=== PATIENT | male | born 1930 | race Hispanic/Latino ===

== ENCOUNTER 2016-12-28 11:52 | Inpatient (IN) | payer MEDICARE, MEDICAID ==
[2016-12-28] MEDS ORDERED: Sodium Chloride 0.9% 500 ML IV ONE (13:02)
--- NOTE | 2016-12-28 13:05 | ED PDOC ---
HPI: Male Pain Time Seen by Provider: 12/28/16 12:21 Chief Complaint (Nursing): Dizziness/Lightheaded History Per: Patient History/Exam Limitations: no limitations Onset/Duration Of Symptoms: Days (1), Gradual Current Symptoms Are (Timing): Still Present Severity: Mild Quality Of Discomfort: Dull Associated Symptoms: Constipation (for3 ddqys no bm). denies: Fever, Chills, Nausea, Vomiting, Diarrhea, Loss Of Appetite, Back Pain, Chest Pain, Urinary Symptoms Alleviating Factors: None Additional History Per: Patient Additional Complaint(s): pt satets diffuse weakness no bm in 3 days reduced po intake, no genital pain no head trauma or abernathy mild lh unpon waking today no prev sx. Past Medical History Reviewed: Historical Data, Nursing Documentation, Vital Signs Vital Signs: Last Vital Signs Temp 97 F L 12/28/16 11:56 Pulse 77 12/28/16 11:56 Resp 18 12/28/16 11:56 BP 120/51 L 12/28/16 11:56 Pulse Ox 99 12/28/16 11:56 - Medical History PMH: No Chronic Diseases - Family History Family History: States: Unknown Family Hx - Living Arrangements Living Arrangements: With Family - Social History Current smoker - smoking cessation education provided: No - Immunization History Hx Tetanus Toxoid Vaccination: No Hx Influenza Vaccination: No Hx Pneumococcal Vaccination: No - Home Medications Home Medications: Ambulatory Orders Medication Instructions Recorded Naproxen [Naprosyn] 500 mg PO Q12H #20 tab 02/04/16 Tamsulosin [Flomax] 0.4 mg PO DAILY #20 cap 02/04/16 - Allergies Allergies/Adverse Reactions: Allergies Allergy/AdvReac Type Severity Reaction Status Date / Time No Known Allergies Allergy Verified 02/04/16 12:45 Review of Systems ROS Statement: Except As Marked, All Systems Reviewed And Found Negative Constitutional: Negative for: Fever, Chills Cardiovascular: Negative for: Chest Pain, Palpitations Respiratory: Negative for: Cough, Shortness of Breath Gastrointestinal: Positive for: Constipation. Negative for: Nausea, Vomiting, Abdominal Pain, Melena, Hematochezia, Hematemesis Genitourinary Male: Negative for: Dysuria, Frequency, Hematuria, Scrotal Pain Skin: Negative for: Rash Neurological: Negative for: Weakness, Numbness, Seizures, Altered Mental Status , Headache Physical Exam - Reviewed Nursing Documentation Reviewed: Yes Vital Signs Reviewed: Yes - Physical Exam Appears: Positive for: Uncomfortable Head Exam: Positive for: ATRAUMATIC, NORMAL INSPECTION, NORMOCEPHALIC Skin: Positive for: Normal Color, Warm, Dry Eye Exam: Positive for: Normal appearance, EOMI, PERRL Neck: Positive for: Normal, Painless ROM, Supple Cardiovascular/Chest: Positive for: Regular Rate, Rhythm, Chest Non Tender. Negative for: Edema, Gallop Respiratory: Positive for: Normal Breath Sounds. Negative for: Decreased Breath Sounds, Rales, Rhonchi, Stridor, Wheezing, Respiratory Distress, Plerual Rub Pulses-Radial (L): 2+ Pulses-Radial (R): 2+ Gastrointestinal/Abdominal: Positive for: Normal Exam, Bowel Sounds, Soft. Negative for: Tenderness Male Genital Exam: Positive for: normal genitalia, no hernia. Negative for: epididymal tenderness, scrotum tenderness (R), scrotum tenderness (L), testicular tenderness (R), testicular tenderness (L) Back: Positive for: Normal Inspection. Negative for: L CVA Tenderness, R CVA Tenderness, Vertebral Tenderness Extremity: Positive for: Normal ROM. Negative for: Tenderness, Pedal Edema, Calf Tenderness, Capillary Refill, Deformity, Swelling Neurologic/Psych: Positive for: Alert, die forger II-XII, Oriented, Mood/Affect (calm) , Cerebellar Tests (ftn nml). Negative for: Motor/Sensory Deficits, Aphasia, Facial Droop - Laboratory Results Result Diagrams: 12/28/16 13:22 12/28/16 13:22 - ECG O2 Sat by Pulse Oximetry: 99 Pulse Ox Interpretation: Normal - Radiology X-Ray: Interpreted by Me X-Ray Interpretation: No Acute Disease - Progress ED Course And Treament: per pmd will admit for dehydration near syncope pt agree's with plan Re-evaluation Time: 15:14 Condition: Unchanged Disposition - Clinical Impression Clinical Impression: Near syncope, Dehydration, Bacteriuria - Patient ED Disposition Is Patient to be Admitted: Yes Counseled Patient/Family Regarding: Studies Performed, Diagnosis - Disposition Disposition Time: 14:00 Condition: STABLE Forms: [employer] (Setswana) - Pt Status Changed To: Hospital Disposition Of: Observation - POA Present On Arrival: None
[2016-12-28 13:29] LABS: BASO % 0.1 % (0.0-2.0); EOS % 0.1 % (0.0-4.0); HEMATOCRIT 43.8 % (35.0-51.0); LYMPH # 0.6 K/uL (1.0-4.3); LYMPH % 9.1 % (20.0-40.0); MEAN CELL VOLUME 92.4 fl (80.0-94.0); MEAN CORPUSCULAR HEMOGLOBIN 30.5 pg (27.0-31.0); MEAN PLATELET VOLUME 10.7 fl (7.2-11.7); MONO # 0.4 K/uL (0.0-0.8); MONO % 5.9 % (0.0-10.0); NEUT # 5.7 K/uL (1.8-7.0); NEUT % 84.8 % (50.0-75.0); PLATELET COUNT 108 K/uL (130-400); RED CELL DISTRIBUTION WIDTH 12.9 % (11.5-14.5); WHITE BLOOD COUNT 6.7 K/uL (4.8-10.8)
--- NOTE | 2016-12-28 13:38 | RAD ---
PROCEDURE: CHEST RADIOGRAPH, 1 VIEW HISTORY: weak COMPARISON: None available. FINDINGS: LUNGS: Clear. PLEURA: No pneumothorax or pleural fluid seen. CARDIOVASCULAR: Normal. OSSEOUS STRUCTURES: No significant abnormalities. VISUALIZED UPPER ABDOMEN: Normal. OTHER FINDINGS: None. IMPRESSION: No active disease.
--- NOTE | 2016-12-28 13:41 | CT ---
PROCEDURE: CT HEAD WITHOUT CONTRAST. HISTORY: weakness dizzy COMPARISON: None available. TECHNIQUE: Axial computed tomography images were obtained through the head/brain without intravenous contrast. Radiation dose: Total exam DLP = 976.15 mGy-cm. This CT exam was performed using one or more of the following dose reduction techniques: Automated exposure control, adjustment of the mA and/or kV according to patient size, and/or use of iterative reconstruction technique. . Note that the examination is limited by motion FINDINGS: HEMORRHAGE: No acute parenchymal, subarachnoid or extra-axial hemorrhage. BRAIN: Mild moderate diffuse/ confluent chronic white matter ischemic changes seen extending from the periventricular into the subcortical regions bilaterally. Moderate to fairly significant generalized volume loss. . Mild vascular calcifications both carotid siphons. VENTRICLES: No obstructive hydrocephalus. CALVARIUM: There are no acute calvarial fracture seen. PARANASAL SINUSES: Minor mucosal thickening noted within few ethmoid air cells. MASTOID AIR CELLS: Unremarkable as visualized. No inflammatory changes. OTHER FINDINGS: None. IMPRESSION: No acute intracranial hemorrhage. . Mild to moderate chronic white matter ischemic changes. Moderate to fairly significant generalized volume loss.
[2016-12-28 13:42] LABS: ALB/GLOB RATIO 1.5 (1.0-2.1); ALKALINE PHOSPHATASE 87 U/L (38-126); ALT/SGPT 32 U/L (21-72); AMYLASE 87 U/L (30-110); AST/SGOT 21 U/L (17-59); BILIRUBIN,TOTAL 3.7 mg/dl (0.2-1.3); BLOOD UREA NITROGEN 22 mg/dl (9-20); CALCIUM 9.4 mg/dL (8.4-10.2); CARBON DIOXIDE 19 mmol/L (22-30); CHLORIDE 102 mmol/L (98-107); GFR AFRICAN-AMERICAN 50; GLUCOSE,RANDOM 125 mg/dL (75-110); LIPASE 24 U/L (23-300); POTASSIUM 4.4 MMOL/L (3.6-5.0); SODIUM 140 mmol/l (132-148); TOTAL PROTEIN 7.6 G/DL (6.3-8.2)
--- NOTE | 2016-12-28 14:12 | CT ---
PROCEDURE: CT Abdomen and Pelvis without intravenous contrast HISTORY: Bilateral flank pain. Renal calculus disease suspected COMPARISON: None TECHNIQUE: Unenhanced study. Neither oral nor intravenous contrast administered. Nicole Radiation dose: Total exam DLP = 409.18 mGy-cm. This CT exam was performed using one or more of the following dose reduction techniques: Automated exposure control, adjustment of the mA and/or kV according to patient size, and/or use of iterative reconstruction technique. FINDINGS: LOWER THORAX: Unremarkable. LIVER: Unremarkable. No gross lesion or ductal dilatation. GALLBLADDER AND BILE DUCTS: Cholelithiasis without CT evidence of acute cholecystitis. PANCREAS: Unremarkable. No gross lesion or ductal dilatation. SPLEEN: Unremarkable. ADRENALS: Unremarkable. No mass. KIDNEYS AND URETERS: Unremarkable. No hydronephrosis. No solid mass. Incidental finding(s): Bilateral simple renal cysts. Largest cyst in the right kidney measures 6.8 cm. Dominant lower pole cyst left kidney 2.6 cm. VASCULATURE: Unremarkable. No aortic aneurysm. BOWEL: Constipation without fecal impaction or obstruction. Norris for diverticulosis APPENDIX: Unremarkable. Normal appendix. PERITONEUM: Unremarkable. No free fluid. No free air. LYMPH NODES: Unremarkable. No enlarged lymph nodes. BLADDER: Unremarkable. REPRODUCTIVE: Prostatic enlargement. Orthogonal measurements 5.7 x 6.1 cm. BONES: No acute fracture. OTHER FINDINGS: None. IMPRESSION: Cholelithiasis without CT evidence of acute cholecystitis. Additional benign and/or incidental findings described above.
[2016-12-28 14:36] LABS: RBC URINE 5 /hpf (0-3); URINE BILIRUBIN NEGATIVE (NEGATIVE); URINE BLOOD SMALL (NEGATIVE); URINE COLOR YELLOW (YELLOW); URINE GLUCOSE (UA) NEG (Normal); URINE KETONE 80 mg/dL (NEGATIVE); URINE LEUKOCYTE ESTERASE NEG Leu/uL (Negative); URINE PROTEIN 30 mg/dL (NEGATIVE); URINE UROBILINOGEN 0.2-1.0 mg/dL (0.2-1.0)
[2016-12-28 14:38] LABS: NEUTROPHIL 86 % (42-75); TOTAL CELLS COUNTED 100
[2016-12-28] MEDS ORDERED: Magnesium Hydroxide Susp 30 ml UD PO PRN (15:44)
--- NOTE | 2016-12-28 16:08 | CP.PCM.HP ---
History of Present Illness - History of Present Illness History of Present Illness: CC: Abdominal pain This is an 86 year old male with a past medical history significant for BPH with elevated PSA, also with history of controlled essential hypertension, who presents to the ED with the complaint of 3 days of constipation with no bowel movement during that time along with decreased PO intake. He also states of lightheadedness this morning when getting up from bed this morning, which is new for him. He is also complaining of worsening generlized weakness and lethargy for the past two days. He denies any other symptoms. In the ED, he was found to have normal vital signs. Laboratory workup however reveals elevated BUN of 22 and creatitine of 1.6, with a GFR of 50. His previous labwork shows normal renal function. In addition he is also noted to have an elevated total bilirubin of 3.7. He does have history of mildly elevated T bili of 1.6 last january, but not this high. His AST/ALT/Alk phos/Lipase levels are all within normal limits however. Urine shows hyaline casts and RBC, but no evidence for infection. The patient is to be placed on observation overnight for further workup by GI for elevated bilirubin as well as Dr. Sanchez for infectious disease to evaluate for infectious etiology. Patient denies chest pain, shortness of breath, fevers, chills, nausea, vomiting, diarrhea, headache. Rest of ROS as below. All of the patient's and/or family's questions were answered at the bedside. Present on Admission - Present on Admission Any Indicators Present on Admission: No Review of Systems - Hematologic/Lymphatic Additional comments: GENERAL/CONSTITUTIONAL: The patient admits to fatigue, weakness. He denies fever , weight gain or weight loss. HEAD, EYES, EARS, NOSE AND THROAT: Eyes - The patient denies pain, redness, loss of vision, double or blurred vision, flashing lights or spots, dryness, Ears, nose, mouth and throat. The patient denies ringing in the ears, loss of hearing, nosebleeds, loss of sense of smell, dry sinuses, sinusitis, post nasal drip, CARDIOVASCULAR: The patient denies chest pain, chest pressure, or irregular heartbeats, RESPIRATORY: The patient denies chronic dry cough, coughing up blood, coughing up mucus, wheezing, or shortness of breath. GASTROINTESTINAL: The patient admits to 3 days decreased po intake and + constipation. He denies nausea, vomiting, vomiting blood or coffee ground material, heartburn, regurgitation, diarrhea, blood in the stools, black tarry stools. GENITOURINARY: The patient admits to chronic frequency and urgency. He denies pain or burning with urination, blood in the urine. MUSCULOSKELETAL: The patient denies arm, buttock, thigh or calf cramps. No joint or muscle pain. No muscle weakness or tenderness. No joint swelling, neck pain, back pain. SKIN: The patient denies easy bruising, skin redness, skin rash, hives, sensitivity to sun exposure, tightness, nodules or bumps, hair loss, color changes in the hands or feet with cold. NEUROLOGIC: The patient denies headache, dizziness, fainting, muscle spasm, loss of consciousness, sensitivity or pain in the hands and feet or memory loss. PSYCHIATRIC: The patient denies anxiety, depression, or thoughts of suicide. ENDOCRINE: The patient denies intolerance to hot or cold temperature, flushing, fingernail changes, increased thirst, or increased salt intake HEMATOLOGIC/LYMPHATIC: The patient denies anemia, bleeding tendency or clotting tendency. ALLERGIC/IMMUNOLOGIC: The patient denies rhinitis, asthma, skin sensitivity, latex allergies or sensitivity. Past Patient History - Infectious Disease Hx of Infectious Diseases: None - Past Medical History & Family History Past Family History: Reviewed and not pertinent - Past Social History Smoking Status: cigars, 15 - GENITOURINARY/GYNECOLOGICAL Hx Prostate Problems: Yes - PSYCHIATRIC Hx Substance Use: No Meds Allergies/Adverse Reactions: Allergies Allergy/AdvReac Type Severity Reaction Status Date / Time No Known Allergies Allergy Verified 02/04/16 12:45 Physical Exam - Additional Findings Additional findings: Physical exam: Constitutional- cooperative, awake, alert. Head- NCAT, PERRL Eye- + mild scleral icterus. PERRL, normal accommodation ENT- normal exam, MMM. Neck- normal inspection, supple, no JVD Respiratory- CTAB, no wheezes rales rhonchi Cardiovascular- RRR, +S1, +S2 no MRG GI/Abdominal- normal bowel sounds, soft, no mass, no hsm Skin- warm, dry. Mildly jaundiced Extremities Exam- normal capillary refill, normal inspection Neurological Exam- alert, CN II-XII intact Psych- normal mood, normal affect Results - Vital Signs Recent Vital Signs: Last Vital Signs Temp 97 F L 12/28/16 11:56 Pulse 77 12/28/16 11:56 Resp 18 12/28/16 11:56 BP 120/51 L 12/28/16 11:56 Pulse Ox 99 12/28/16 15:15 - Labs Result Diagrams: 12/28/16 13:22 12/28/16 13:22 Labs: Laboratory Results - last 24 hr 12/28/16 12/28/16 12/28/16 13:22 13:22 14:10 WBC 6.7 RBC 4.75 Hgb 14.5 Hct 43.8 MCV 92.4 MCH 30.5 MCHC 33.0 RDW 12.9 Plt Count 108 L MPV 10.7 Neut % (Auto) 84.8 H Lymph % (Auto) 9.1 L [place] % (Auto) 5.9 Eos % (Auto) 0.1 Baso % (Auto) 0.1 Neut # 5.7 Lymph # 0.6 L [place] # 0.4 Eos # 0.0 Baso # 0.0 Neutrophils % (Manual) 86 H Lymphocytes % (Manual) 9 L Monocytes % (Manual) 5 Platelet Estimate Decreased L RBC Morphology Normal Sodium 140 Potassium 4.4 Chloride 102 Carbon Dioxide 19 L Anion Gap 23 H BUN 22 H Creatinine 1.6 H Est GFR ( Amer) 50 Est GFR (Non-Af Amer) 41 Random Glucose 125 H Calcium 9.4 Total Bilirubin 3.7 H AST 21 ALT 32 Alkaline Phosphatase 87 Troponin I < 0.0120 Total Protein 7.6 Albumin 4.5 Globulin 3.1 Albumin/Globulin Ratio 1.5 Amylase 87 Lipase 24 Urine Color Yellow Urine Clarity Cloudy Urine pH 5.0 Ur Specific Kathryn 1.019 Urine Protein 30 Urine Glucose (UA) Neg Urine Ketones 80 Urine Blood Small Urine Nitrate Negative Urine Bilirubin Negative Urine Urobilinogen 0.2-1.0 Ur Leukocyte Esterase Neg Urine RBC (Auto) 5 H Ur Squamous Epith Cells 1 Amorphous Sediment Rare H Hyaline Casts >20 H Assessment & Plan - Assessment and Plan (Free Text) Plan: ASSESSMENT/PLAN This is an 86 year old male placed on observation for prerenal azotemia and dehydration with decreased po intake, also with elevated bilirubin. 1) Prerenal azotemia due to dehydration from poor po intake - Observation overnight for rehydration - Check CBC/CMP in AM - Dr. Sanchez for ID to evaluate for infectious etiology of poor po intake and elevated bili - Normal saline at 100 cc/hour 2) Constipation, no evidence of obstruction - Start Colace scheduled TID - Milk of magnesia PRN as well for constipation 3) Elevated total bilirubin, etiology unclear, however does have cholelithiasis without evidence of obstruction. AST/ALT/alk phos/lipas/amylase values all normal and patient is pain free - Liver unremarkable on CT scan - 3.7 - GI consultation for further workup - Repeat CMP in AM 4) PSH - Continue Flomax 5) DVT prophylaxis with heparin SQ
[2016-12-28] MEDS: Sodium Chloride 0.9% 1,000 ML IV SCH (17:35)
[2016-12-29] MEDS: Sodium Chloride 0.9% 1,000 ML IV SCH ×3 (03:50→17:04)
[2016-12-29 06:20] LABS: BASO % 0.1 % (0.0-2.0); EOS # 0.1 K/uL (0.0-0.7); EOS % 0.9 % (0.0-4.0); HEMATOCRIT 35.2 % (35.0-51.0); LYMPH # 1.1 K/uL (1.0-4.3); LYMPH % 15.3 % (20.0-40.0); MEAN CELL VOLUME 91.6 fl (80.0-94.0); MEAN CORPUSCULAR HEMOGLOBIN 30.5 pg (27.0-31.0); MEAN CORPUSCULAR HGB CONC 33.3 g/dL (33.0-37.0); MEAN PLATELET VOLUME 10.6 fl (7.2-11.7); MONO # 0.7 K/uL (0.0-0.8); MONO % 9.7 % (0.0-10.0); NEUT # 5.2 K/uL (1.8-7.0); NRBC % 0.1 % (0.0-0.0); RED CELL DISTRIBUTION WIDTH 12.5 % (11.5-14.5)
[2016-12-29 06:36] LABS: ALB/GLOB RATIO 1.3 (1.0-2.1); ALKALINE PHOSPHATASE 56 U/L (38-126); ALT/SGPT 30 U/L (21-72); AST/SGOT 20 U/L (17-59); BILIRUBIN,TOTAL 2.3 mg/dl (0.2-1.3); BLOOD UREA NITROGEN 22 mg/dl (9-20); CALCIUM 8.2 mg/dL (8.4-10.2); CARBON DIOXIDE 24 mmol/L (22-30); CHLORIDE 108 mmol/L (98-107); GFR AFRICAN-AMERICAN > 60; GLUCOSE,RANDOM 76 mg/dL (75-110); POTASSIUM 4.5 MMOL/L (3.6-5.0); SODIUM 140 mmol/l (132-148); TOTAL PROTEIN 5.7 G/DL (6.3-8.2)
[2016-12-29 06:48] LABS: PARTIAL THROMBOPLASTIN TIME 35.8 Seconds (25.6-37.1)
--- NOTE | 2016-12-29 08:24 | CON ---
INFECTIOUS DISEASE CONSULTATION DATE: HISTORY OF PRESENT ILLNESS: The patient is well known to me. He is resistant to seeing doctors. On Wednesday when I visited the family, he was in severe abdominal pain, had some nausea, vomiting, and at that point in time, refused to go to the hospital. He also stated that he had not had a bowel movement for a few days. The patient also has a past history of prostate disease and he has got a PSA above 30, which he was advised to have a prostatic biopsy, but has resisted over the past year and a half to do this. The patient also has hypertension and is on Enalopril . He has not visited a physician formally during f time other than visiting the ER twice in the past year. I spoke with the family on Wednesday and he still would not go to the hospital. He came to the hospital today because he felt significantly worse this morning and said he lost his vision transiently and then also had a near-syncopal episode. The patient also has not been eating appropriately as he has not been able to move his bowels. When seen in the emergency room, he was alert, cooperative, and oriented to time and place. CAT scan showed cholelithiasis without evidence of cholecystitis, and also showed that he had stool in the bowel. His labs showed a total bilirubin of 3.7, BUN of 22, creatinine of 1.6 with a GFR of 49. His previous labs showed a total bilirubin of 1.6 and a normal creatinine. Liver function tests and lipase levels are all within normal limits. Urine does show hyaline casts and rbc's. Urine culture is pending. PHYSICAL EXAMINATION GENERAL: At the present time, he seems comfortable and is eating. HEENT: Facial skin is markedly tanned. Conjunctivae are pinkish. NECK: Supple. LUNGS: Decreased breath sounds. HEART: Regular sinus rhythm. ABDOMEN: Tender with decreased bowel sounds. EXTREMITIES: Showed some wasting. The patient smokes [place] cigars on a daily basis and he also has a significant alcohol intake, which at this time shows no evidence of cirrhosis other than the bilirubin being 3.6. ASSESSMENT AND PLAN: At the present time, he seems comfortable and is eating. I feel that this patient should have: 1. Gastroenterology evaluation. 2. Neurology evaluation. 3. He should be seen by . Genitourinary consult and possibility of a prostatic biopsy at this time, although the patient once again seems hesitant to have anything done. As he is a difficult patient to care for, I feel that we should try to evaluate him in multiple ways so that we can be sure of his clinical status. We will start him on IV antibiotics. Fer Sanchez MD MTDD
--- NOTE | 2016-12-29 08:28 | CARD ---
APPROVED REPORT EKG Measurement Heart [id number] <Conclusion> Normal sinus rhythm Normal ECG
[2016-12-29] MEDS ORDERED: cefTRIAXone (Rocephin) 1 gm Inj IM ONE (12:18)
[2016-12-29] MEDS ORDERED: cefTRIAXone (Rocephin) 1 gm Inj IVPB ONE (12:50)
[2016-12-29] MEDS ORDERED: cefTRIAXone IV 1 gm in Dextros 50 ML IVPB ONE ×2 (13:00→13:30)
[2016-12-29] MEDS ORDERED: cefTRIAXone (Rocephin) 2 gm Inj IVPB ONE (13:01)
--- NOTE | 2016-12-29 16:38 | CP.PCM.PN ---
Subjective - Date & Time of Evaluation Date of Evaluation: 12/29/16 Time of Evaluation: 16:36 - Subjective Subjective: UROLOGY called to assess elevated PSA currently 32.4 I advised pt of prostate biopsies. He understands and agrees. I will pre treat today with IV antibiotics and fleets enema. He is scheduled for this procedure in the OR 12/30/16 at 7:45 am Objective - Vital Signs/Intake and Output Vital Signs (last 24 hours): Temp Pulse Resp BP Pulse Ox 97.6 F 66 20 102/64 99 12/29/16 16:02 12/29/16 16:02 12/29/16 16:02 12/29/16 16:02 12/29/16 16:02 - Medications Medications: Current Medications Docusate Sodium (Colace) 100 mg PO TID [facility] Last Admin: 12/29/16 14:18 Dose: 100 mg Heparin Sodium (Porcine) (Heparin) 5,000 units SC Q12 [facility] PRN Reason: Protocol Last Admin: 12/29/16 14:18 Dose: 5,000 units Sodium Chloride (Sodium Chloride 0.9%) 1,000 mls @ 100 mls/hr IV .Q10H [facility] Last Admin: 12/29/16 03:50 Dose: 100 mls/hr Ceftriaxone Sodium (Rocephin Iv 1 Gm Duplex) 50 mls @ 50 mls/hr IVPB ONCE ONE Stop: 12/30/16 06:59 Ibuprofen (Motrin Tab) 400 mg PO Q6H PRN PRN Reason: Pain, Mild (1-3) Magnesium Hydroxide (Milk Of Magnesia) 15 ml PO QID PRN PRN Reason: Constipation Last Admin: 12/29/16 08:30 Dose: 15 ml Tamsulosin HCl (Flomax) 0.4 mg PO DAILY [facility] Last Admin: 12/29/16 08:25 Dose: 0.4 mg - Labs Labs: 12/29/16 05:00 12/29/16 05:00 PT 11.7 Seconds (9.8-13.1) 12/29/16 05:00 INR 1.0 (0.9-1.2) 12/29/16 05:00 APTT 35.8 Seconds (25.6-37.1) 12/29/16 05:00
[2016-12-29 17:16] LABS: THYROID STIMULATING HORMONE 1.05 mIU/ML (0.46-4.68)
--- NOTE | 2016-12-29 17:36 | CP.PCM.PN ---
Subjective - Date & Time of Evaluation Date of Evaluation: 12/29/16 Time of Evaluation: 17:32 - Subjective Subjective: I D NOTE PATIENT HAS HAD 3 ENEMAS TODAY C SIGNIFICANT RESULTS SEEN BY PAIGE CHOUDHURY AND WILL HAVE PROSTATIC BIOPSY TOMORROW,PROPHYLAXIS ORDERED, AWAITING GI AND NEUROLOGY CONSULT Objective - Vital Signs/Intake and Output Vital Signs (last 24 hours): Temp Pulse Resp BP Pulse Ox 97.6 F 66 20 102/64 99 12/29/16 16:02 12/29/16 16:02 12/29/16 16:02 12/29/16 16:02 12/29/16 16:02 - Medications Medications: Current Medications Docusate Sodium (Colace) 100 mg PO TID [facility] Last Admin: 12/29/16 17:04 Dose: 100 mg Heparin Sodium (Porcine) (Heparin) 5,000 units SC Q12 [facility] PRN Reason: Protocol Last Admin: 12/29/16 14:18 Dose: 5,000 units Sodium Chloride (Sodium Chloride 0.9%) 1,000 mls @ 100 mls/hr IV .Q10H [facility] Last Admin: 12/29/16 17:04 Dose: 100 mls/hr Ceftriaxone Sodium (Rocephin Iv 1 Gm Duplex) 50 mls @ 50 mls/hr IVPB ONCE ONE Stop: 12/30/16 06:59 Metronidazole (Flagyl 500mg/100ml Ns) 100 mls @ 100 mls/hr IVPB ONCE ONE Stop: 12/30/16 07:59 Ibuprofen (Motrin Tab) 400 mg PO Q6H PRN PRN Reason: Pain, Mild (1-3) Magnesium Hydroxide (Milk Of Magnesia) 15 ml PO QID PRN PRN Reason: Constipation Last Admin: 12/29/16 08:30 Dose: 15 ml Sodium Phosphate (Fleet Enema) 135 ml [place] ONCE ONE Stop: 12/29/16 21:01 Tamsulosin HCl (Flomax) 0.4 mg PO DAILY [facility] Last Admin: 12/29/16 08:25 Dose: 0.4 mg - Labs Labs: 12/29/16 05:00 12/29/16 05:00 PT 11.7 Seconds (9.8-13.1) 12/29/16 05:00 INR 1.0 (0.9-1.2) 12/29/16 05:00 APTT 35.8 Seconds (25.6-37.1) 12/29/16 05:00
--- NOTE | 2016-12-29 19:23 | CP.PCM.PN ---
Subjective - Date & Time of Evaluation Date of Evaluation: 12/29/16 Time of Evaluation: 10:00 - Subjective Subjective: Patient was seen and examined at bedside today. Still complaining of some generalized weakness. He was seen by Dr. Mccoy today secondary to elevated PSA and prostate biopsy is scheduled for tomorrow . Patient has lactulose on board and was also given Fleet enema. No other complaints today of cp, sob, n/v/d. Objective - Vital Signs/Intake and Output Vital Signs (last 24 hours): Temp Pulse Resp BP Pulse Ox 97.6 F 66 20 102/64 99 12/29/16 17:00 12/29/16 17:00 12/29/16 17:00 12/29/16 17:00 12/29/16 17:00 - Medications Medications: Current Medications Docusate Sodium (Colace) 100 mg PO TID [facility] Last Admin: 12/29/16 17:04 Dose: 100 mg Heparin Sodium (Porcine) (Heparin) 5,000 units SC Q12 [facility] PRN Reason: Protocol Last Admin: 12/29/16 14:18 Dose: 5,000 units Sodium Chloride (Sodium Chloride 0.9%) 1,000 mls @ 100 mls/hr IV .Q10H [facility] Last Admin: 12/29/16 17:04 Dose: 100 mls/hr Ceftriaxone Sodium (Rocephin Iv 1 Gm Duplex) 50 mls @ 50 mls/hr IVPB ONCE ONE Stop: 12/30/16 06:59 Metronidazole (Flagyl 500mg/100ml Ns) 100 mls @ 100 mls/hr IVPB ONCE ONE Stop: 12/30/16 07:59 Ibuprofen (Motrin Tab) 400 mg PO Q6H PRN PRN Reason: Pain, Mild (1-3) Magnesium Hydroxide (Milk Of Magnesia) 15 ml PO QID PRN PRN Reason: Constipation Last Admin: 12/29/16 08:30 Dose: 15 ml Sodium Phosphate (Fleet Enema) 135 ml SC ONCE ONE Stop: 12/29/16 21:01 Tamsulosin HCl (Flomax) 0.4 mg PO DAILY [facility] Last Admin: 12/29/16 08:25 Dose: 0.4 mg - Labs Labs: 12/29/16 05:00 12/29/16 05:00 PT 11.7 Seconds (9.8-13.1) 12/29/16 05:00 INR 1.0 (0.9-1.2) 12/29/16 05:00 APTT 35.8 Seconds (25.6-37.1) 12/29/16 05:00 - Additional Findings Additional findings: Physical exam: Constitutional- cooperative, awake, alert. Head- NCAT, PERRL Eye- PERRL, normal accommodation ENT- normal exam, MMM. Neck- normal inspection, supple, no JVD Respiratory- CTAB, no wheezes rales rhonchi Cardiovascular- RRR, +S1, +S2 no MRG GI/Abdominal- normal bowel sounds, soft, no mass, no hsm Skin- warm, dry Extremities Exam- normal capillary refill, normal inspection Neurological Exam- alert, stable gait Psych- normal mood, normal affect Assessment and Plan - Assessment and Plan (Free Text) Plan: This is an 86 year old male placed on observation for prerenal azotemia and dehydration with decreased po intake, also with elevated bilirubin. 1) Prerenal azotemia due to dehydration from poor po intake, improving with IV fluids - Continue to monitor BUN/CR - improved from yesterday - Dr. Sanchez for ID to evaluate for infectious etiology of poor po intake and elevated bili - Normal saline at 100 cc/hour 2) Constipation, improved - Start Colace scheduled TID - Changed MoM to Lactulose as per patient request - Patient having BM's 3) Elevated total bilirubin, etiology unclear, however does have cholelithiasis without evidence of obstruction. AST/ALT/alk phos/lipas/amylase values all normal and patient is pain free - Liver unremarkable on CT scan - 3.7 t bili, decreased down to 2.3 today; improved - Awaiting GI consultation with Dr. Russ - Repeat CMP in AM 4) BPH hx with significantly elevated PSH - Patient to go for prostatic biopsy in morning at 7:[address] Mccoy - Rocephin given for ABX prophylaxis - Continue Flomax 5) DVT prophylaxis with heparin SQ
--- NOTE | 2016-12-29 22:40 | CP.PCM.CON ---
History of Present Illness - History of Present Illness History of Present Illness: CC Complaints: Dizziness, Abdominal pain, very high level of PSA, R/O Prostatic malignancy This is an 86 year old male with a past medical history significant for BPH with elevated PSA, also with history of controlled essential hypertension, who presents to the ED with the complaint of 3 days of constipation with no bowel movement during that time along with decreased PO intake. He also states of lightheadedness this morning when getting up from bed this morning, which is new for him. He is also complaining of worsening generalized weakness and lethargy for the past two days. He denies any other symptoms. In the ED, he was found to have normal vital signs. Laboratory workup however reveals elevated BUN of 22 and creatinine of 1.6, with a GFR of 50. His previous lab work shows normal renal function. In addition he is also noted to have an elevated total bilirubin of 3.7. He does have history of mildly elevated T bili of 1.6 last january, but not this high. His AST/ALT/Alk phos/Lipase levels are all within normal limits however. Urine shows hyaline casts and RBC, but no evidence for infection. The patient is to be placed on observation overnight for further workup by GI for elevated bilirubin as well as Dr. Sanchez for infectious disease to evaluate for infectious etiology. Patient denies chest pain, shortness of breath, fevers, chills, nausea, vomiting, diarrhea, headache. Rest of ROS as below. All of the patient's and/or family's questions were answered at the bedside. Still complaining of generalized weakness. Prostate biopsy is scheduled for tomorrow . He has significant constipation. Patient has lactulose on board and was also given Fleet enema. No other complaints today of cp, sob, n/v/d. Any Indicators Present on Admission: No GENERAL/CONSTITUTIONAL: The patient admits to fatigue, weakness. He denies fever , weight gain or weight loss. HEAD, EYES, EARS, NOSE AND THROAT: Eyes - The patient denies pain, redness, loss of vision, double or blurred vision, flashing lights or spots, dryness, Ears, nose, mouth and throat. The patient denies ringing in the ears, loss of hearing, nosebleeds, loss of sense of smell, dry sinuses, sinusitis, post nasal drip, CARDIOVASCULAR: The patient denies chest pain, chest pressure, or irregular heartbeats, RESPIRATORY: The patient denies chronic dry cough, coughing up blood, coughing up mucus, wheezing, or shortness of breath. GASTROINTESTINAL: The patient admits to 3 days decreased po intake and + constipation. He denies nausea, vomiting, vomiting blood or coffee ground material, heartburn, regurgitation, diarrhea, blood in the stools, black tarry stools. GENITOURINARY: The patient admits to chronic frequency and urgency. He denies pain or burning with urination, blood in the urine. XXX MUSCULOSKELETAL: The patient denies arm, buttock, thigh or calf cramps. No joint or muscle pain. No muscle weakness or tenderness. No joint swelling, neck pain, back pain. SKIN: The patient denies easy bruising, skin redness, skin rash, hives, sensitivity to sun exposure, tightness, nodules or bumps, hair loss, color changes in the hands or feet with cold. NEUROLOGIC: The patient denies headache, dizziness, fainting, muscle spasm, loss of consciousness, sensitivity or pain in the hands and feet or memory loss. PSYCHIATRIC: The patient denies anxiety, depression, or thoughts of suicide. ENDOCRINE: The patient denies intolerance to hot or cold temperature, flushing, fingernail changes, increased thirst, or increased salt intake HEMATOLOGIC/LYMPHATIC: The patient denies anemia, bleeding tendency or clotting tendency. ALLERGIC/IMMUNOLOGIC: The patient denies rhinitis, asthma, skin sensitivity, latex allergies or sensitivity. - Infectious Disease Hx of Infectious Diseases: None - Past Medical History & Family History Past Family History: Reviewed and not pertinent - Past Social History Smoking Status: cigars, 15 XXXXXX - GENITOURINARY/GYNECOLOGICAL Hx Prostate Problems: Yes - PSYCHIATRIC Hx Substance Use: No Meds Allergies/Adverse Reactions: Allergies Allergy/AdvReac Type Severity Reaction Status Date / Time No Known Allergies Allergy Verified 02/04/16 12:45 Physical Exam - Additional Findings Additional findings: Physical exam: Constitutional- cooperative, awake, alert. Head- NCAT, PERRL Eye- + mild scleral icterus. PERRL, normal accommodation ENT- normal exam, MMM. Neck- normal inspection, supple, no JVD Respiratory- CTAB, no wheezes rales rhonchi Cardiovascular- RRR, +S1, +S2 no MRG GI/Abdominal- normal bowel sounds, soft, no mass, no hsm Skin- warm, dry. Mildly jaundiced Extremities Exam- normal capillary refill, normal inspection Neurological Exam- alert, CN II-XII intact Psych- normal mood, normal affect Results - Vital Signs Recent Vital Signs: Last Vital Signs Temp 97 F L 12/28/16 11:56 Pulse 77 12/28/16 11:56 Resp 18 12/28/16 11:56 BP 120/51 L 12/28/16 11:56 Pulse Ox 99 12/28/16 15:[address] Abdomen: Cholelithiasis without CT evidence of acute cholecystitis. CXR: Non Significant CT Brain: Non significant Plan ASSESSMENT/PLAN This is an 86 year old male placed on observation for prerenal azotemia and dehydration with decreased po intake, also with elevated bilirubin. 1) Prerenal azotemia due to dehydration from poor po intake - Observation overnight for rehydration - Check CBC/CMP in AM - Dr. Sanchez for ID to evaluate for infectious etiology of poor po intake and elevated bili - Normal saline at 100 cc/hour 2) Constipation, no evidence of obstruction - Start Colace scheduled TID - Milk of magnesia PRN as well for constipation 3) Elevated total bilirubin, etiology unclear, however does have cholelithiasis without evidence of obstruction. AST/ALT/alk phos/lipas/amylase values all normal and patient is pain free - Liver unremarkable on CT scan - 3.7 - GI consultation for further workup - Repeat CMP in AM 4) PSH - Continue Flomax 5) DVT prophylaxis with heparin SQ 6) Essential htn, controlled - Enalapril to be held for now due to renal insufficiency - Monitor vitals - Restart Enalapril if renal function improves 7) I D NOTE PATIENT HAS HAD 3 ENEMAS TODAY C SIGNIFICANT RESULTS SEEN BY PAIGE CHOUDHURY WILL HAVE PROSTATIC BIOPSY TOMORROW, PROPHYLAXIS ORDERED, UROLOGY called to assess elevated PSA currently 32.4 I advised pt of prostate biopsies. He understands and agrees. He will pre treat today with IV antibiotics and fleets enema. He is scheduled for this procedure in the OR 12/30 at 7:45 am Past Patient History - Infectious Disease Hx of Infectious Diseases: None - Past Medical History & Family History Past Medical History?: Yes - Past Social History Smoking Status: Never Smoked - CARDIAC Hx Cardiac Disorders: Yes (HTN) Hx Hypertension: Yes - PULMONARY Hx Respiratory Disorders: No - NEUROLOGICAL Hx Neurological Disorder: No - HEENT Hx HEENT Problems: Yes Other/Comment: glasses - RENAL Hx Chronic Kidney Disease: No - ENDOCRINE/METABOLIC Hx Endocrine Disorders: No - HEMATOLOGICAL/ONCOLOGICAL Hx Blood Disorders: No Hx Blood Transfusions: No - INTEGUMENTARY Hx Dermatological Problems: No - MUSCULOSKELETAL/RHEUMATOLOGICAL Hx Musculoskeletal Disorders: No Hx Falls: No - GASTROINTESTINAL Hx Gastrointestinal Disorders: Yes Hx Constipation: Yes - GENITOURINARY/GYNECOLOGICAL Hx Genitourinary Disorders: Yes (enlarged prostate) Hx Prostate Problems: Yes - PSYCHIATRIC Hx Psychophysiologic Disorder: No Hx Substance Use: No - SURGICAL HISTORY Hx Surgeries: No - ANESTHESIA Hx Anesthesia: Yes Hx Anesthesia Reactions: No Hx Malignant Hyperthermia: No Has any member of the family had a problem w/ anesthesia?: No Meds Allergies/Adverse Reactions: Allergies Allergy/AdvReac Type Severity Reaction Status Date / Time No Known Allergies Allergy Verified 02/04/16 12:45 - Medications Medications: Current Medications Docusate Sodium (Colace) 100 mg PO TID [facility] Last Admin: 12/29/16 17:04 Dose: 100 mg Heparin Sodium (Porcine) (Heparin) 5,000 units SC Q12 [facility] PRN Reason: Protocol Last Admin: 12/29/16 14:18 Dose: 5,000 units Sodium Chloride (Sodium Chloride 0.9%) 1,000 mls @ 100 mls/hr IV .Q10H [facility] Last Admin: 12/29/16 17:04 Dose: 100 mls/hr Ceftriaxone Sodium (Rocephin Iv 1 Gm Duplex) 50 mls @ 50 mls/hr IVPB ONCE ONE Stop: 12/30/16 06:59 Metronidazole (Flagyl 500mg/100ml Ns) 100 mls @ 100 mls/hr IVPB ONCE ONE Stop: 12/30/16 07:59 Ibuprofen (Motrin Tab) 400 mg PO Q6H PRN PRN Reason: Pain, Mild (1-3) Magnesium Hydroxide (Milk Of Magnesia) 15 ml PO QID PRN PRN Reason: Constipation Last Admin: 12/29/16 08:30 Dose: 15 ml Tamsulosin HCl (Flomax) 0.4 mg PO DAILY [facility] Last Admin: 12/29/16 08:25 Dose: 0.4 mg Physical Exam - Neurological Exam Additional comments: Mental Status: Normal exam, awake, alert, oriented, normal memory, normal cognition, fluent coherent speech Awake alert Oriented normal memory fluent coherent speech Normal Cognition Cranial Nerves II to XII: Normal EOEM, No Nystagmus Pupils are equal reactive to light No facial Asymmetry Normal swallowing Central Tongue Motor: Normal Tone, power and Muscle bulk DTR 0/4 allover Toes are down going by plantar stimulation Sensory: No deficits on the face or the extremities or the rest of the body Cerebellar: Normal FNT Results - Vital Signs Recent Vital Signs: Last Vital Signs Temp 97.8 F 12/29/16 19:54 Pulse 64 12/29/16 19:54 Resp 20 12/29/16 19:54 BP 145/69 12/29/16 19:54 Pulse Ox 99 12/29/16 19:54 - Labs Result Diagrams: 12/29/16 05:00 12/29/16 05:00 Labs: Laboratory Results - last 24 hr 12/29/16 12/29/16 12/29/16 05:00 05:00 05:00 WBC 7.0 RBC 3.84 L Hgb 11.7 L D Hct 35.2 MCV 91.6 MCH 30.5 MCHC 33.3 RDW 12.5 Plt Count 106 L MPV 10.6 Neut % (Auto) 74.0 Lymph % (Auto) 15.3 L [place] % (Auto) 9.7 Eos % (Auto) 0.9 Baso % (Auto) 0.1 Neut # 5.2 Lymph # 1.1 [place] # 0.7 Eos # 0.1 Baso # 0.0 PT 11.7 INR 1.0 APTT 35.8 Sodium 140 Potassium 4.5 Chloride 108 H Carbon Dioxide 24 Anion Gap 13 BUN 22 H Creatinine 1.3 Est GFR ( Amer) > 60 Est GFR (Non-Af Amer) 53 Random Glucose 76 Calcium 8.2 L Total Bilirubin 2.3 H Direct Bilirubin AST 20 ALT 30 Alkaline Phosphatase 56 Total Protein 5.7 L Albumin 3.2 L D Globulin 2.5 Albumin/Globulin Ratio 1.3 Vitamin B12 TSH 3rd Generation 12/29/16 16:36 WBC RBC Hgb Hct MCV MCH MCHC RDW Plt Count MPV Neut % (Auto) Lymph % (Auto) [place] % (Auto) Eos % (Auto) Baso % (Auto) Neut # Lymph # [place] # Eos # Baso # PT INR APTT Sodium Potassium Chloride Carbon Dioxide Anion Gap BUN Creatinine Est GFR ( Amer) Est GFR (Non-Af Amer) Random Glucose Calcium Total Bilirubin Direct Bilirubin 0.5 H AST ALT Alkaline Phosphatase Total Protein Albumin Globulin Albumin/Globulin Ratio Vitamin B12 257 TSH 3rd Generation 1.05 Assessment & Plan (1) Prostatic cancer Assessment and Plan: This is a major priority to be assessed. He will have a prostatic Biopsy in AM and is suffering from Gall bladder stones, raising his LFT and causing him Abdominal Pain. Cancer Prostate might cause Vertigo and dizziness as a part of a Paraneoplastic Syndrome. Check Anti Yo Abs Status: Acute (2) Bacteriuria Status: Acute (3) Dehydration Status: Acute (4) Near syncope Status: Acute (5) Prostate enlargement Assessment and Plan: R/O Prostatic Infection or BPH or CA Prostate Status: Acute
[2016-12-30] MEDS ORDERED: cefTRIAXone (Rocephin) 1 gm Inj IM ONE (00:01)
[2016-12-30] MEDS ORDERED: cefTRIAXone (Rocephin) 1 gm Inj IVPB ONE ×2 (00:01→06:00)
--- NOTE | 2016-12-30 00:55 | CON ---
DATE: REFERRING PHYSICIAN: Fer Sanchez MD. REASON FOR CONSULTATION: Abdominal pain, constipation. HISTORY OF PRESENT ILLNESS: This is a pleasant 86-year-old male with history of BPH with PSA elevation, history of hypertension, comes in with 2 days of constipation, found to have elevated BUN and creatinine, as well as elevated bilirubin, which is chronic for him. Denies any new pain or new weight loss. No blood in the stool. Decreased p.o. intake now. Otherwise, lying in bed, comfortable, in no apparent distress. PAST MEDICAL HISTORY: As above. PAST SURGICAL HISTORY: As above. MEDICATIONS: Have been reviewed. REVIEW OF SYSTEMS: All other systems have been reviewed and are negative, except for those positives in the HPI. PHYSICAL EXAMINATION GENERAL: This is a pleasant elderly-appearing man, lying in bed, comfortable, in no apparent distress. VITAL SIGNS: Vital here in the hospital are grossly unremarkable. HEENT: Head: Normocephalic, atraumatic. Eyes: Pupils are equally reactive to light bilaterally. No conjunctival pallor. Some icterus. NECK: Supple. Normal range of motion. No lymphadenopathy. LUNGS: Coarse breath sounds bilaterally. HEART: S1, S2. Regular rate and rhythm. No murmurs appreciated. ABDOMEN: Soft and nontender. Bowel sounds are present. No rebound. No guarding. RECTAL: Deferred. EXTREMITIES: Pulses present bilaterally. SKIN: Warm, dry, and intact. NEUROLOGIC: A and O x3. LABORATORY DATA: All labs and relevant radiology have been reviewed. INR 1.0, WBC 7.1, and hemoglobin 9.7. Creatinine was 1.6, now 1.3. AST and ALT are normal. Bilirubin was 3.7, now 2.3. CAT scan shows constipation. ASSESSMENT AND PLAN: This is an 86-year-old male with constipation and elevated bilirubin. laxatives p.r.n. We will get a fractionated bilirubin. We will likely get a contrast-enhanced imaging study, but creatinine at this point is still elevated. We will wait till it improves and then get either an MRI with gadolinium or a CT with IV contrast, and then x-rays of the liver. Advance diet as tolerated. A renal workup in progress. Thank you for the consult. Scot Russ MD/ PhD cc: MD Domingo Odom MD
[2016-12-30 05:13] LABS: HEMATOCRIT 38.2 % (35.0-51.0); MEAN CELL VOLUME 92.8 fl (80.0-94.0); MEAN CORPUSCULAR HEMOGLOBIN 30.4 pg (27.0-31.0); MEAN CORPUSCULAR HGB CONC 32.8 g/dL (33.0-37.0); RED CELL DISTRIBUTION WIDTH 12.9 % (11.5-14.5); WHITE BLOOD COUNT 4.5 K/uL (4.8-10.8)
[2016-12-30 05:38] LABS: ALB/GLOB RATIO 1.3 (1.0-2.1); ALKALINE PHOSPHATASE 61 U/L (38-126); ALT/SGPT 30 U/L (21-72); AST/SGOT 27 U/L (17-59); BILIRUBIN,TOTAL 1.3 mg/dl (0.2-1.3); BLOOD UREA NITROGEN 16 mg/dl (9-20); CALCIUM 8.5 mg/dL (8.4-10.2); CARBON DIOXIDE 24 mmol/L (22-30); CHLORIDE 108 mmol/L (98-107); GFR AFRICAN-AMERICAN > 60; GLUCOSE,RANDOM 98 mg/dL (75-110); POTASSIUM 3.8 MMOL/L (3.6-5.0); SODIUM 140 mmol/l (132-148); TOTAL PROTEIN 6.5 G/DL (6.3-8.2)
[2016-12-30] MEDS ORDERED: cefTRIAXone (Rocephin) 2 gm Inj IVPB ONE (06:00)
[2016-12-30] MEDS ORDERED: cefTRIAXone IV 1 gm in Dextros 50 ML IVPB ONE (06:00)
[2016-12-30] MEDS ORDERED: metroNIDAZOLE 500mg/100ml NS IVPB ONE ×2 (07:00)
[2016-12-30] MEDS ORDERED: metroNIDAZOLE 500mg/100ml NS 100 ML IVPB ONE (07:00)
[2016-12-30] MEDS ORDERED: Midazolam 2 MG/2 ML VIAL ONE (07:44)
[2016-12-30] MEDS ORDERED: Propofol 10 mg/ml Inj (20 ML) ONE (07:44)
[2016-12-30] MEDS ORDERED: Lactated Ringer's 1,000 ML IV ONE (07:45)
[2016-12-30] MEDS ORDERED: Lidocaine 1% 5ml Abboject IV ONE (07:45)
[2016-12-30] MEDS: Sodium Chloride 0.9% 1,000 ML IV SCH (08:25)
[2016-12-30] MEDS ORDERED: Sodium Chloride 0.9% 1,000 ML IV SCH (09:15)
--- NOTE | 2016-12-30 09:56 | OP ---
PROCEDURE DATE: 12/30/2016 PREOPERATIVE DIAGNOSIS: Benign prostatic hypertrophy with elevated prostate-specific antigen. POSTOPERATIVE DIAGNOSIS: Benign prostatic hypertrophy with elevated prostate-specific antigen. PROCEDURE: TRUS biopsy. DESCRIPTION OF PROCEDURE: The patient was given an IV sedation and placed on the operating room table in the left lateral decubitus. I used Betadine wash for rectal cleansing. At this time, he had some rectal stenosis which was able to dilate digitally. I was able to insert the transrectal ultrasound probe at this time. The documentation as is follows; prostate measures 112 g, the PSA was 32.4, 13 cores were taken, 6 from the right, 6 from the left and 1 additional in the right mid-medial area. Once all the biopsies were taken, the instrumentation was removed. Estimated blood loss to be less than 10 mL. The patient then was taken from the operating room in good condition. Raji Mccoy MD
[2016-12-30 12:46] LABS: FOLATE 6.6 ng/mL
[2016-12-30] MEDS ORDERED: Iodixanol 320 MG/ML 100 ML BOTTLE IV ONE (12:52)
[2016-12-30] MEDS ORDERED: Sodium Chloride 0.9% 50 ML IV ONE (12:52)
[2016-12-30] MEDS ORDERED: Gadodiamide 287 MG/ML VIAL (15ML) IV ONE (14:34)
--- NOTE | 2016-12-30 15:58 | MRI ---
PROCEDURE: MRI BRAIN WITH AND WITHOUT CONTRAST HISTORY: Very high Prostatic PSA, R/o Prostaic mets COMPARISON: None. TECHNIQUE: Multiplanar, multisequence MR images of the brain were obtained with and without intravenous contrast enhancement. 14 cc of Omniscan was administered FINDINGS: HEMORRHAGE: None DWI: No evidence of an acute or early subacute infarction. BRAIN PARENCHYMA: No mass,mass effect or edema. There is generalized cerebral atrophy. There is some multiple periventricular and bilateral spot mostly supratentorial deep white matter small FLAIR and T2 hyperintensities nonenhancing -most consistent with microvascular ischemic changes in this age group,. Gliosis demyelinization, vascularities and Lyme disease are considerations but believe much less likely. , ENHANCEMENT: No abnormal intracranial enhancement. VENTRICLES: Prominent-however commensurate with the degree of atrophy. CRANIUM: Unremarkable. ORBITS: Grossly unremarkable. PARANASAL SINUSES/MASTOIDS: There is some and greater fat like signal over the right mastoid air cells consistent with incomplete pneumatization. Possibly some concomitant mild right mastoid effusion is not excluded. The anterior paranasal sinuses are without any gross significant appearing inflammatory changes. VASCULAR SYSTEM: Skull base flow voids intact. OTHER FINDINGS: None . IMPRESSION: No intracranial hemorrhage or mass effect. No acute infarct. Cerebral atrophy. Nonspecific periventricular and deep white matter supratentorial white matter T2 and FLAIR hyperintensities all nonenhancing. In this age group, microvascular ischemic changes are believe most likely.
--- NOTE | 2016-12-30 16:54 | CP.PCM.PN ---
Subjective - Date & Time of Evaluation Date of Evaluation: 12/30/16 Time of Evaluation: 16:37 - Subjective Subjective: I D NOTE HAD PROSTATIC BIOPSY TODAY NOTE REVIEWED MRI:INITIAL READING IS NO PATHOLOGY CAROTID US IS PENDING WILL POSSIBLY GO HOME TONITE.HAVE GIVEN Rx FOR VIT D3,COLACE,LACTULOSE TO SEE OUTPATIENT. TO SEE FOR DISCHARGE Objective - Vital Signs/Intake and Output Vital Signs (last 24 hours): Temp Pulse Resp BP Pulse Ox 97.7 F 55 L 20 108/56 L 100 12/30/16 12:00 12/30/16 12:00 12/30/16 12:00 12/30/16 12:00 12/30/16 12:00 Intake and Output: 12/30/16 12/30/16 06:59 18:59 Intake Total 1700 Balance 1700 - Medications Medications: Current Medications Cholecalciferol (Vitamin D) 2,000 iu PO DAILY [facility] Docusate Sodium (Colace) 100 mg PO TID [facility] Last Admin: 12/30/16 16:30 Dose: Not Given Heparin Sodium (Porcine) (Heparin) 5,000 units SC Q12 [facility] PRN Reason: Protocol Last Admin: 12/29/16 14:18 Dose: 5,000 units Sodium Chloride (Sodium Chloride 0.9%) 1,000 mls @ 100 mls/hr IV .Q10H [facility] Last Admin: 12/30/16 08:25 Dose: 100 mls Ibuprofen (Motrin Tab) 400 mg PO Q6H PRN PRN Reason: Pain, Mild (1-3) Last Admin: 12/30/16 10:07 Dose: 400 mg Magnesium Hydroxide (Milk Of Magnesia) 15 ml PO QID PRN PRN Reason: Constipation Last Admin: 12/29/16 08:30 Dose: 15 ml Tamsulosin HCl (Flomax) 0.4 mg PO DAILY [facility] Last Admin: 12/30/16 10:06 Dose: 0.4 mg - Labs Labs: 12/30/16 04:50 12/30/16 04:50 PT 11.7 Seconds (9.8-13.1) 12/29/16 05:00 INR 1.0 (0.9-1.2) 12/29/16 05:00 APTT 35.8 Seconds (25.6-37.1) 12/29/16 05:00
[2016-12-30 17:00] VITALS: BP 122/74; PULSE 53; RESP 16; TEMP 97.2; O2SAT 96
--- NOTE | 2016-12-30 17:32 | CP.PCM.DIS ---
Provider - Provider Date of Admission: 12/28/16 15:06 Attending physician: Sumeet Toro DO Primary care physician: Dr Mattson Consults: Urology: Dr Mccoy Neuro: Dr Hogue Time Spent in preparation of Discharge (in minutes): 40 Diagnosis - Discharge Diagnosis (1) Dehydration Status: Acute (2) Acute prerenal azotemia Status: Acute (3) Prostate enlargement Status: Chronic (4) Generalized weakness Status: Acute (5) Hyperbilirubinemia Status: Acute (6) Elevated PSA Status: Acute (7) Constipation Status: Acute Hospital Course - Lab Results Lab Results: Micro Results 12/28/16 14:10 Urine Urine Culture - Final No Growth (<1,000 CFU/ML) Most Recent Lab Values WBC 4.5 K/uL (4.8-10.8) L 12/30/16 04:50 RBC 4.12 Mil/uL (4.40-5.90) L 12/30/16 04:50 Hgb 12.5 g/dL (12.0-18.0) 12/30/16 04:50 Hct 38.2 % (35.0-51.0) 12/30/16 04:50 MCV 92.8 fl (80.0-94.0) 12/30/16 04:50 MCH 30.4 pg (27.0-31.0) 12/30/16 04:50 MCHC 32.8 g/dL (33.0-37.0) L 12/30/16 04:50 RDW 12.9 % (11.5-14.5) 12/30/16 04:50 Plt Count 105 K/uL (130-400) L 12/30/16 04:50 MPV 10.6 fl (7.2-11.7) 12/29/16 05:00 Neut % (Auto) 74.0 % (50.0-75.0) 12/29/16 05:00 Lymph % (Auto) 15.3 % (20.0-40.0) L 12/29/16 05:00 [place] % (Auto) 9.7 % (0.0-10.0) 12/29/16 05:00 Eos % (Auto) 0.9 % (0.0-4.0) 12/29/16 05:00 Baso % (Auto) 0.1 % (0.0-2.0) 12/29/16 05:00 Neut # 5.2 K/uL (1.8-7.0) 12/29/16 05:00 Lymph # 1.1 K/uL (1.0-4.3) 12/29/16 05:00 [place] # 0.7 K/uL (0.0-0.8) 12/29/16 05:00 Eos # 0.1 K/uL (0.0-0.7) 12/29/16 05:00 Baso # 0.0 K/uL (0.0-0.2) 12/29/16 05:00 Neutrophils % (Manual) 86 % (42-75) H 12/28/16 13:22 Lymphocytes % (Manual) 9 % (20-50) L 12/28/16 13:22 Monocytes % (Manual) 5 % (0-10) 12/28/16 13:22 Platelet Estimate Decreased (NORMAL) L 12/28/16 13:22 RBC Morphology Normal (NORMAL) 12/28/16 13:22 ESR 6 mm/hr (0-20) 12/30/16 04:50 PT 11.7 Seconds (9.8-13.1) 12/29/16 05:00 INR 1.0 (0.9-1.2) 12/29/16 05:00 APTT 35.8 Seconds (25.6-37.1) 12/29/16 05:00 Sodium 140 mmol/l (132-148) 12/30/16 04:50 Potassium 3.8 MMOL/L (3.6-5.0) 12/30/16 04:50 Chloride 108 mmol/L (98-107) H 12/30/16 04:50 Carbon Dioxide 24 mmol/L (22-30) 12/30/16 04:50 Anion Gap 11 (10-20) 12/30/16 04:50 BUN 16 mg/dl (9-20) 12/30/16 04:50 Creatinine 1.2 mg/dl (0.8-1.5) 12/30/16 04:50 Est GFR ( Amer) > 60 12/30/16 04:50 Est GFR (Non-Af Amer) 58 12/30/16 04:50 Random Glucose 98 mg/dL (75-110) 12/30/16 04:50 Uric Acid 6.0 mg/Dl (3.5-8.5) 12/30/16 04:50 Calcium 8.5 mg/dL (8.4-10.2) 12/30/16 04:50 Total Bilirubin 1.3 mg/dl (0.2-1.3) 12/30/16 04:50 Direct Bilirubin 0.5 mg/ml (0.0-0.4) H 12/29/16 16:36 AST 27 U/L (17-59) 12/30/16 04:50 ALT 30 U/L (21-72) 12/30/16 04:50 Alkaline Phosphatase 61 U/L (38-126) 12/30/16 04:50 Troponin I < 0.0120 ng/mL (0.00-0.120) 12/28/16 13:22 C-React Prot High Sens 8.59 mg/L (1.00-3.00) H 12/30/16 04:50 Total Protein 6.5 G/DL (6.3-8.2) 12/30/16 04:50 Albumin 3.7 g/dL (3.5-5.0) 12/30/16 04:50 Globulin 2.8 gm/dL (2.2-3.9) 12/30/16 04:50 Albumin/Globulin Ratio 1.3 (1.0-2.1) 12/30/16 04:50 Amylase 87 U/L (30-110) 12/28/16 13:22 Lipase 24 U/L (23-300) 12/28/16 13:22 Prostate Specific Ag 32.6 ng/ML (0.00-4.0) H 12/28/16 20:00 Vitamin B12 257 pg/mL (239-931) 12/29/16 16:36 25-OH Vitamin D Total 26.4 NG/ML (30.0-100.0) L 12/30/16 04:50 Folate 6.6 ng/mL 12/30/16 04:50 TSH 3rd Generation 1.05 mIU/ML (0.46-4.68) 12/29/16 16:36 Urine Color Yellow (YELLOW) 12/28/16 14:10 Urine Clarity Cloudy (Clear) 12/28/16 14:10 Urine pH 5.0 (5.0-8.0) 12/28/16 14:10 Ur Specific [place] 1.019 (1.003-1.030) 12/28/16 14:10 Urine Protein 30 mg/dL (NEGATIVE) 12/28/16 14:10 Urine Glucose (UA) Neg mg/dL (Normal) 12/28/16 14:10 Urine Ketones 80 mg/dL (NEGATIVE) 12/28/16 14:10 Urine Blood Small (NEGATIVE) 12/28/16 14:10 Urine Nitrate Negative (NEGATIVE) 12/28/16 14:10 Urine Bilirubin Negative (NEGATIVE) 12/28/16 14:10 Urine Urobilinogen 0.2-1.0 mg/dL (0.2-1.0) 12/28/16 14:10 Ur Leukocyte Esterase Neg [place]/uL (Negative) 12/28/16 14:10 Urine RBC (Auto) 5 /hpf (0-3) H 12/28/16 14:10 Ur Squamous Epith Cells 1 /hpf (0-5) 12/28/16 14:10 Amorphous Sediment Rare /ul (<OCC) H 12/28/16 14:10 Hyaline Casts >20 /hpf (0-2) H 12/28/16 14:10 - Hospital Course Hospital Course: This is an 86 year old male , came in bec of abd pain and weakness. Found to have prerenal azotemia and dehydration with decreased po intake, also with elevated bilirubin and constipation. PSA noted to be markedly elevated. Pt was started on IVF hydration. Urology consulted- Prostate Biopsy done. Was started on IV ceftriaxone. Neurology consulted - MRI of Brain done was negative. Carotid Sono; no significant stenosis. 1) Prerenal azotemia due to dehydration from poor po intake improved with IV fluids - Dr. Mattson for ID to evaluate for infectious etiology of poor po intake and elevated bili - Normal saline at 100 cc/hour 2) Constipation, improved - Started Colace scheduled TID - Changed MoM to Lactulose as per patient request - Patient having BM's 3) Elevated total bilirubin, etiology unclear, however does have cholelithiasis without evidence of obstruction. AST/ALT/alk phos/lipas/amylase values all normal and patient is pain free - Liver unremarkable on CT scan - 3.7 t bili, decreased down to 2.3, today its normal. improved - GI consultation with Dr. Russ- further work up to be done as outpt 4) BPH hx with significantly elevated PSH -s/p prostatic biopsy done by Dr. Mccoy - Rocephin given for ABX prophylaxis - Continue Flomax - ff up biopsy result with Dr Mccoy 5) DVT prophylaxis with heparin SQ Discharge Exam - Head Exam Head Exam: ATRAUMATIC, NORMAL INSPECTION, NORMOCEPHALIC - Eye Exam Eye Exam: EOMI, Normal appearance Pupil Exam: NORMAL ACCOMODATION - ENT Exam ENT Exam: Mucous Membranes Moist, Normal External Ear Exam - Neck Exam Neck exam: Full Rom - Respiratory Exam Respiratory Exam: NORMAL BREATHING PATTERN. absent: Respiratory Distress - Cardiovascular Exam Cardiovascular Exam: REGULAR RHYTHM, +S1, +S2 - GI/Abdominal Exam GI & Abdominal Exam: Normal Bowel Sounds, Soft. absent: Tenderness - Extremities Exam Extremities exam: full ROM, normal capillary refill, pedal pulses present - Back Exam Back exam: FULL ROM. absent: CVA tenderness (L), CVA tenderness (R) - Neurological Exam Neurological exam: Alert, CN II-XII Intact, Normal Gait, Oriented x3, Reflexes Normal - Psychiatric Exam Psychiatric exam: Normal Affect, Normal Mood - Skin Skin Exam: Dry, Normal Color, Warm Discharge Plan - Discharge Medications Prescriptions: Docusate [Colace] 100 mg PO TID #90 cap - Follow Up Plan Condition: GOOD Disposition: HOME/ ROUTINE Additional Instructions: ff up with Dr mattson next wk appt with Dr Russ delmy for Colonoscopy ff up with Dr Mccoy for Prostate Biopsy result
--- NOTE | 2016-12-30 17:40 | US ---
PROCEDURE: Bilateral duplex Doppler carotid arterial ultrasound examination HISTORY: R/O CVA, Vertigo, High PSA COMPARISON: Not available TECHNIQUE: Ultrasound examination of the carotid and vertebral arteries was performed utilizing a linear array color Doppler transducer. FINDINGS: Right carotid artery: Examination of the right carotid artery demonstrates intimal thickening in the distal CCA. There is mild calcified atheromatous plaque in the carotid bulb. Peak systolic velocity measurements: CCA: 61.3 cm/sec ICA: 68.6 cm/sec ICA/CCA peak systolic velocity ratio: 1.1 Antegrade flow demonstrated in the vertebral artery Left carotid artery: Examination of the left carotid artery demonstrates intimal thickening throughout the common carotid artery. There is mild calcified atheromatous plaque in the carotid bulb. Peak systolic velocity measurements: CCA: 621.9 cm/sec ICA: 56.5 cm/sec ICA/CCA peak systolic velocity ratio: 0.9 There is antegrade flow demonstrated in vertebral artery IMPRESSION: No evidence of hemodynamically significant carotid arterial stenosis bilaterally (less than 50 percent).
--- NOTE | 2016-12-30 22:10 | CP.PCM.PN ---
Subjective - Date & Time of Evaluation Date of Evaluation: 12/30/16 Time of Evaluation: 15:30 - Subjective Subjective: MRI Brain is not showing any abnormal findings, EEG is not showiing findins Prostatic Biopsy was performed and he was discharged Home. He will be followed by Dr Osullivan as an outpatient Objective - Vital Signs/Intake and Output Vital Signs (last 24 hours): Temp Pulse Resp BP Pulse Ox 97.2 F L 53 L 16 122/74 96 12/30/16 16:59 12/30/16 16:59 12/30/16 16:59 12/30/16 16:59 12/30/16 16:59 Intake and Output: 12/30/16 12/31/16 18:59 06:59 Intake Total 1700 Balance 1700 - Labs Labs: 12/30/16 04:50 12/30/16 04:50 PT 11.7 Seconds (9.8-13.1) 12/29/16 05:00 INR 1.0 (0.9-1.2) 12/29/16 05:00 APTT 35.8 Seconds (25.6-37.1) 12/29/16 05:00 Assessment and Plan (1) Prostatic cancer Status: Acute (2) Bacteriuria Status: Acute (3) Dehydration Status: Acute (4) Near syncope Status: Acute (5) Prostate enlargement Status: Chronic
--- NOTE | 2017-01-04 09:36 | EEG ---
CONDITION OF THE RECORDING: Record is obtained for a history of prostatic enlargement, rule out metastatic lesion to brain, rule out encephalopathy. The patient also has vertigo, rule out seizures, and rule out paraneoplastic syndrome. The record was obtained while the patient was awake and drowsy and asleep. The record was symmetrically equal on both sides with a velocity of 8 cycles per second. The waves were fairly formed, fairly organized with a posterior distribution, average in amplitude, reactive to opening by attenuation. There were no abnormal discharges. No spikes, no polyspike, and no sharp waves. No focal slowing. No paroxysmal discharge. The record did not show any changes with photic stimulation. Hyperventilation was omitted. There were periods of drowsiness during which attenuation and slowing of the record were seen and theta waves were seen. There were periods of sleep, during which, delta waves were seen. There were eye movement artifact, electrode artifact, and muscle movement artifacts. IMPRESSION: In summary, this is a normal awake, drowsy, and asleep electroencephalogram. Clinical correlation is recommended. Nell Hogue MD
== END 2016-12-30 19:08 | disposition home or self-care (01) | DRG 641 ==
LOC: H.ER 11:52 → H.ERHOLD 15:06 → H.TEL 16:27
PROVIDERS: ADMIT Internal Medicine; ATTEND Internal Medicine
PROC: 0VB07ZX Excision of Prostate, Via Natural or Artificial Opening, Diagnostic (ICD-10-PCS; principal; 2016-12-30 07:45)
DX: E86.0 Dehydration (principal); C61 Malignant neoplasm of prostate; K80.20 Calculus of gallbladder without cholecystitis without obstruction; R82.71 Bacteriuria; R39.2 Extrarenal uremia; N40.0 Benign prostatic hyperplasia without lower urinary tract symptoms; I10 Essential (primary) hypertension; R55 Syncope and collapse; K59.00 Constipation, unspecified